=== PATIENT | male | born 1940 | race Caucasian/White ===

== ENCOUNTER → 2017-10-04 | Day surgery (SDC) | payer MEDICARE ==
[~2017-10-04] VITALS: Ht 167.6 cm; Wt 118.0 kg
[~2017-10-04] MED LIST: ALDA2525 PO; ARTH650T6 PO; ASPI1TAB57 PO; ATOR80TA45 PO; BUME2TAB PO; CARV12.52 PO; CHLORHEXIDINE GLUCONATE 2 % 1 PACK (2 CLOTHS) TOPICAL PRN; CHRO1CAP4; CILO50TA PO; CLOP75TA PO; EPINEPHrine HCL PF/SF (1:1000) 1 MG/ML AMP I-OCULAR ONE; FOLI400T PO; GLUCTAB PO; HYALURONIDASE/LIDOCAINE/BUPIVACAINE 5 ML SYR RIGHT EYE ONE; INSU1INJ14 SQ; ISOS120T PO; LACTATED RINGER'S 1000 ML IV PRN; LEVEMIR SC; LISI-363 PO; NIAC PO; NOVOINJ3 SQ; OMEG10005; POTA1TAB4 PO; POVIDONE IODINE 5% (ANTISEPSIS KIT) 4 APPLICATIONS EACH NARE PRN; PROPARACAINE HCL 0.5% OPHT SOLN 15 ML BTL RIGHT EYE ONE; PROPOFOL 200 MG/20 ML AMP ONE; REFRDRO EACH EYE; ROSU1TAB10 PO; SODIUM CHLORID 0.9% 500 ML IV PRN; SUCR1TAB PO; TAMS0.4C4 PO; TERA2CAP3 PO; TOBRAMYCIN/DEXAMETHASONE OPTH OINT 3.5 GM TUBE ONE
[2017-10-04] MEDS: FLURBIPROFEN 0.03% OPHT SOLN 2.5 ML BTL RIGHT EYE SCH ×4 (07:02→07:17)
[2017-10-04] MEDS: CYCLOPENTOLATE HCL 1% OPHT SOLN 2 ML BTL RIGHT EYE SCH ×4 (07:02→07:17)
[2017-10-04] MEDS: PHENYLEPHRINE HCL 10% OPTH SOLN 5 ML BTL RIGHT EYE SCH ×4 (07:02→07:17)
[2017-10-04] MEDS: TROPICAMIDE 1% OPHT SOLN 15 ML BTL RIGHT EYE SCH ×4 (07:02→07:17)
[2017-10-04 07:51] VITALS: PULSE 73
[2017-10-04 08:24] VITALS: PULSE 70
[2017-10-04 09:55] VITALS: TEMP 98.2
[2017-10-04 10:10] VITALS: BP 140/58; PULSE 62; RESP 16; O2SAT 95
--- NOTE | 2017-10-04 10:14 | MP ---
cc: Faustino Arango MD DATE OF OPERATION: 10/04/2017 PREOPERATIVE DIAGNOSIS: Visually significant cataract right eye. POSTOPERATIVE DIAGNOSIS: Visually significant cataract right eye. OPERATION: Phacoemulsification with posterior chamber lens implantation, right eye. SURGEON: Faustino Arango MD ANESTHESIA: Retrobulbar with MAC. COMPLICATIONS: None. PROCEDURE: After informed consent was obtained, the patient was brought into the operative suite and placed on appropriate monitors by the Anesthesia Service. The patient had received a prior retrobulbar injection of local anesthetic by the Anesthesia Service in the holding area. The patient's operative eye was then prepped and draped in the usual sterile fashion. A wire lid speculum was placed. A paracentesis incision was made in the peripheral cornea with a 1 mm darius keratome. The anterior chamber was filled with viscoelastic. The anterior chamber was then entered through a stepped, clear corneal incision using a sharp 3 mm darius keratome. A circular tear capsulorrhexis was then made with a bent needle cystitome. Following hydrodissection of the lens nucleus with balanced saline, phaco-emulsification of the nucleus was performed using a modified chopping technique. The remaining cortex was removed with irrigation/aspiration. The prior two procedures were both performed using the handpieces of the [employer] phaco unit. The capsular bag was then filled with viscoelastic. The intraocular lens was then injected into the capsular bag and positioned. The type of intraocular lens and its power can be found elsewhere in this chart. The remaining viscoelastic was then removed from the anterior chamber with the IA handpiece. The anterior chamber was reformed with balanced saline. The wound was then closed securely with stromal hydration. It was found to be watertight to an intraocular pressure of at least 30 mmHg by palpation. A small amount of balanced salt solution was then removed through the paracentesis site and the intraocular pressure at the end of the case was approximately 20 by palpation. All drapes were then removed. TobraDex ointment was then placed in the eye, which was closed beneath a semi-pressure patch dressing. The patient tolerated this procedure well and left the operating room awake and alert. The patient is to follow-up in my office in the morning. MD DANELLE Fuchs/RY , 10:05 AM , 10:12 AM
== END | disposition home or self-care (01) ==
LOC: PHSDC 06:55
PROVIDERS: ATTEND Optometrist Occupational Vision
DX: H25.13 Age-related nuclear cataract, bilateral (principal); H04.123 Dry eye syndrome of bilateral lacrimal glands; H44.21 Degenerative myopia, right eye; H43.811 Vitreous degeneration, right eye; I25.10 Atherosclerotic heart disease of native coronary artery without angina pectoris; I10 Essential (primary) hypertension; E78.5 Hyperlipidemia, unspecified; E11.9 Type 2 diabetes mellitus without complications; K21.9 Gastro-esophageal reflux disease without esophagitis; E66.9 Obesity, unspecified
CPT/HCPCS: 00142; 66984; 82948; J0171; J7040; V2632